=== PATIENT | male | born 1950 | race Caucasian/White ===

== ENCOUNTER 2024-02-29 03:55 | Day surgery (SDC) | payer OTHER, BC ==
[2024-02-28 12:27] VITALS: BMI 24.3
[2024-02-29] MEDS ORDERED: LIDOCAINE HCL 1%, 10 MG/ML (20ML VIAL) ONE ×2 (07:07→09:19)
[2024-02-29] MEDS ORDERED: HEPARIN NA (PORCINE) 5,000 UNITS/ML 1ML VIAL ONE (07:07)
[2024-02-29] MEDS ORDERED: ONDANSETRON 4 MG/2 ML VIAL ONE (07:31)
[2024-02-29] MEDS ORDERED: DEXAMETHASONE SOD PHOSPHATE 4 MG/1 ML VIAL ONE (07:31)
[2024-02-29] MEDS ORDERED: PROPOFOL 60 ML ONE (07:31)
[2024-02-29] MEDS ORDERED: LIDOCAINE HCL/PF 2% SDV 5ML VIAL ONE (07:31)
[2024-02-29] MEDS ORDERED: MIDAZOLAM HCL 2 MG/2 ML SINGLE DOSE VIAL ONE (07:31)
[2024-02-29] MEDS ORDERED: SUCCINYLCHOLINE CHLORIDE 200 MG/10 ML SYRINGE ONE (07:31)
[2024-02-29 07:45] LABS: POTASSIUM 6.1 mmol/L (3.5-5.1)
[2024-02-29] MEDS: LIDOCAINE HCL 1%, 10 MG/ML (20ML VIAL) INF ONE ×2 (08:21)
[2024-02-29] MEDS: BACITRACIN ZINC 15 GM TUBE TOPICAL OINTMENT TP ONE (09:10)
[2024-02-29] MEDS ORDERED: BACITRACIN ZINC 15 GM TUBE TOPICAL OINTMENT ONE (09:30)
[2024-02-29] MEDS ORDERED: oxyCODONE HCL 5 MG TABLET PO PRN (09:41)
[2024-02-29] MEDS ORDERED: ONDANSETRON 4 MG/2 ML VIAL IVPUSH PRN (09:50)
[2024-02-29] MEDS ORDERED: SODIUM CHLORIDE 1,000 ML IV SCH (10:00)
[2024-02-29 12:01] VITALS: PULSE 55; RESP 18; TEMP 96.9
[2024-02-29 12:22] VITALS: BP 170/80
== END 2024-02-29 13:41 | disposition home or self-care (01) ==
LOC: JASU-SURG 03:55
PROVIDERS: ATTEND Surgery
PROC: 05PY33Z Removal of Infusion Device from Upper Vein, Percutaneous Approach (ICD-10-PCS; 2024-02-29)
PROC: 05HA33Z Insertion of Infusion Device into Left Brachial Vein, Percutaneous Approach (ICD-10-PCS; 2024-02-29)
PROC: B54NZZA Ultrasonography of Left Upper Extremity Veins, Guidance (ICD-10-PCS; 2024-02-29)
PROC: 05CF3ZZ Extirpation of Matter from Left Cephalic Vein, Percutaneous Approach (ICD-10-PCS; 2024-02-29)
PROC: 0WPG33Z Removal of Infusion Device from Peritoneal Cavity, Percutaneous Approach (ICD-10-PCS; principal; 2024-02-29 08:00)
DX: I12.0 Hypertensive chronic kidney disease with stage 5 chronic kidney disease or end stage renal disease (principal); T82.41XA Breakdown (mechanical) of vascular dialysis catheter, initial encounter; Y83.8 Other surgical procedures as the cause of abnormal reaction of the patient, or of later complication, without mention of misadventure at the time of the procedure; Y92.9 Unspecified place or not applicable
CPT/HCPCS: 36415; 71045-TC-FY; 76000-TC-FY; 84132; 94760; C1750; C1769; J1644

== ENCOUNTER 2024-04-04 05:13 | Day surgery (SDC) | payer OTHER, BC ==
[2024-04-02 11:39] VITALS: BMI 24.4
[2024-04-04] MEDS: VANCOMYCIN/HEPARIN - ANTIBIOTIC LOCK 3 ML (RESTRICTED TO ID) IVPUSH ONE
[2024-04-04] MEDS ORDERED: HEPARIN NA (PORCINE) 5,000 UNITS/ML 1ML VIAL ONE ×2 (07:05→10:05)
[2024-04-04] MEDS ORDERED: LIDOCAINE HCL 1%, 10 MG/ML (20ML VIAL) ONE ×2 (07:05→09:13)
[2024-04-04] MEDS ORDERED: PROPOFOL 20 ML ONE (07:42)
[2024-04-04] MEDS ORDERED: MIDAZOLAM HCL 2 MG/2 ML SINGLE DOSE VIAL ONE ×3 (07:42→10:29)
[2024-04-04 08:37] LABS: INR 0.96 (0.83-1.09)
[2024-04-04] MEDS ORDERED: ONDANSETRON 4 MG/2 ML VIAL IVPUSH PRN (09:04)
[2024-04-04] MEDS ORDERED: ONDANSETRON 4 MG/2 ML VIAL ONE (09:51)
[2024-04-04] MEDS: LIDOCAINE HCL 1%, 10 MG/ML (20ML VIAL) NR ONE ×3 (10:02)
[2024-04-04] MEDS: HEPARIN NA (PORCINE) 5,000 UNITS/ML 1ML VIAL SQ ONE ×2 (10:12)
[2024-04-04 12:29] VITALS: BP 151/83; PULSE 71; RESP 16; TEMP 97.3
== END 2024-04-04 13:05 | disposition home or self-care (01) ==
LOC: JASU-SURG 05:13
PROVIDERS: ATTEND Surgery
PROC: 05743DZ Dilation of Left Innominate Vein with Intraluminal Device, Percutaneous Approach (ICD-10-PCS; principal; 2024-04-04 08:00)
DX: T82.858A Stenosis of other vascular prosthetic devices, implants and grafts, initial encounter (principal); I12.0 Hypertensive chronic kidney disease with stage 5 chronic kidney disease or end stage renal disease; N18.6 End stage renal disease; Z99.2 Dependence on renal dialysis; Y83.2 Surgical operation with anastomosis, bypass or graft as the cause of abnormal reaction of the patient, or of later complication, without mention of misadventure at the time of the procedure
CPT/HCPCS: 36415; 76000-TC-FY; 84132; 85610; 93005; 93010; 94760; C1769; J1644